=== PATIENT | female | born 1980 | race Caucasian/White ===

== ENCOUNTER 2020-02-29 07:34 | Emergency (ER) | payer OTHER, SELFPAY ==
[2020-02-29 07:42] VITALS: BP 125/72; PULSE 95; RESP 20; TEMP 36.2; O2SAT 97
--- NOTE | 2020-02-29 08:35 | ECG_ITS ---
Measurements Intervals [place] Rate: 72 P: 64 ME: 152 QRS: 60 QRSD: 76 T: 55 QT: 392 QTc: 431 Interpretive Statements SINUS RHYTHM NORMAL ECG Electronically Signed On 02-29-2020 10:05:27 [employer] by Leonides Casiano D.O.
[2020-02-29 08:51] LABS: Basophils Percent Auto 0.5 % (0.2-1.2); Eosinophils Absolute Auto 0.1 K/mm3 (0-0.3); Eosinophils Percent Auto 1.8 % (0-4.4); Hematocrit 42.9 % (37.0-47.0); Hemoglobin 14.8 g/dL (12.0-15.0); Immature Granulocyte Absolute 0.01 K/mm3 (0.00-0.031); Immature Granulocyte Percent A 0.2 % (0-0.5); Lymphocytes Percent Auto 34.7 % (18.3-44.2); Mean Corpuscular HGB Conc 34.5 g/dl (32-36); Mean Corpuscular Hemoglobin 33.1 pg (26-34); Mean Platelet Volume 8.9 fl (7.4-10.4); Monocytes Absolute Auto 0.5 K/mm3 (0.1-0.6); Monocytes Percent Auto 8.8 % (2.6-8.5); Platelet Count Result 301 k/mm3 (150-375); Red Blood Count 4.47 M/mm3 (4.2-5.4); Red Cell Distribution Width 12.4 % (11.5-14.5); White Blood Count 5.5 K/mm3 (4.5-10.0)
[2020-02-29 09:06] LABS: Alanine Aminotransferase 24 U/L (4-35); Albumin Level 4.1 g/dL (3.5-5.1); Alkaline Phosphatase 69 U/L (38-126); Anion Gap 6 mmol/L (8-16); Aspartate Amino Transferase 29 U/L (14-36); Bilirubin,Total 0.3 mg/dL (0.2-1.3); Blood Urea Nitrogen 9 mg/dL (7-17); Carbon Dioxide 29 mmol/L (22-30); Chloride 103 mmol/L (98-107); Estimated Glomerular Filt Rate > 60; Glucose 108 mg/dL (65-105); Magnesium 2.1 mg/dL (1.6-2.3); Potassium 4.6 mmol/L (3.4-5.0); Sodium 138 mmol/L (137-145)
[2020-02-29 09:12] VITALS: BP 121/84; PULSE 77
[2020-02-29 09:13] VITALS: BP 117/83; PULSE 74
[2020-02-29 09:14] VITALS: BP 119/80; PULSE 75
[2020-02-29 09:18] VITALS: BP 119/80; PULSE 81; RESP 17; O2SAT 97
--- NOTE | 2020-02-29 10:41 | ED.EYEPROB ---
HPI - Eye Problem General Chief complaint: Eye Problems Stated complaint: trouble seeing Time Seen by Provider: 02/29/20 08:25 Source: patient Mode of arrival: ambulatory Limitations: no limitations History of Present Illness HPI Narrative: This patient is a 40 year old female who presents for evaluation of blurred vision. She states she was at work standing around, and she states she developed lightheadness . She also reports she developed dark spots in her vision. She reports this has subsided now. She states this happened before 6 months ago after drinking a lot of alcohol the night before. She reports she drank last night as well. This lasted approximately for 1 hour. She denies palpitations or chest pain. She also denies focal weakness. Related Data Home Medications Medication Instructions Recorded Confirmed No Home Medications 02/29/20 02/29/20 Allergies Allergy/AdvReac Type Severity Reaction Status Date / Time No Known Allergies Allergy Verified 02/29/20 07:48 Review of Systems Review of Systems: All systems reviewed & are unremarkable except as noted in HPI and below Constitutional: Constitutional: Denies chills and Denies fever(s) Eyes: Eyes: Reports change in vision and Denies photophobia ENT: Denies nasal congestion Cardiovascular: Cardiovascular: Denies chest pain and Denies rapid heart rate Respiratory: Respiratory: Denies cough and Denies dyspnea PMFSH Past Medical History Medical History (Updated 02/29/20 @ 11:17 by Yoana Theodore MD) Patient denies medical problems Surgical History Surgical History (Updated 02/29/20 @ 10:53 by Yoana Theodore MD) H/O section Social History Social History (Updated 02/29/20 @ 10:53 by Yoana Theodore MD) Smoking packs per day: 0.5 Smoking cigarettes per day: 10.0 Smoking status: Current every day smoker Alcohol intake: current Substance use: never Gender identity (if verbalized by the patient): Female Exam Const: General: alert Orientation/consciousness: patient oriented x3 Eyes: Alignment and Position: alignment normal and position normal Periorbital: periorbital findings normal Eyelids: eyelids normal Conjunctivae: conjunctivae normal Pupils: Equal, round and reactive pupils present EOM: EOMs intact bilaterally Direct Ophthalmoscopy: normal light reflex and fundi normal bilaterally Neck: Neck: normal visual inspection and no lymphadenopathy Chest: Chest palpation & inspection: normal inspection of the chest Resp: Effort & Inspection: normal respiratory effort Auscultation: clear to auscultation bilaterally Cardio: Rate: regular rate Rhythm: regular rhythm Heart sounds: no murmurs GI: GI Palp: Yes Soft to palpation, No Tenderness to palpation present (GI) and No Guarding due to palpation present (GI) Auscultation: normal bowel sounds Neuro: General: patient oriented x3, moves all extremities, no meningeal signs, no focal motor deficits and CN's II-XI intact bilaterally Cranial nerves: Yes Nystagmus not present Speech: normal speech Gait exam (Neuro): Normal gait present Extrem: General: normal to inspection Psych: Mental Status: mental status grossly normal Affect: normal affect Course Reevaluation(s) Reevaluation #1: Patient reports her vision is back to normal. I Discussed with patient she will need to follow up PCP and an opthalmologist. I thinks something systemic happened and her eyes are ok. Date: 02/29/20 Time: 11:14 Vital Signs Vital signs: Vital Signs Temperature 97.2 F L 02/29/20 07:42 Pulse Rate 95 02/29/20 07:42 Respiratory Rate 20 02/29/20 07:42 Blood Pressure 125/72 02/29/20 07:42 Pulse Oximetry 97 02/29/20 07:42 Temperature 97.2 F L 02/29/20 07:42 Pulse Rate 71 02/29/20 11:22 Respiratory Rate 20 02/29/20 11:22 Blood Pressure 126/75 02/29/20 11:22 Pulse Oximetry 100 02/29/20 11:22 MDM - Eye Problem Lab Data Attest
[2020-02-29 11:22] VITALS: BP 126/75; PULSE 71; RESP 20; O2SAT 100
== END 2020-02-29 11:25 | disposition home or self-care (01) ==
PROVIDERS: Emergency Provider General Practice
DX: H53.8 Other visual disturbances (principal); R42 Dizziness and giddiness; F17.210 Nicotine dependence, cigarettes, uncomplicated
CPT/HCPCS: 36415; 80053; 81025; 83735; 85025; 93005; 99283; A9270

== ENCOUNTER 2020-04-16 09:21 | Outpatient (CLI) | payer OTHER, SELFPAY ==
[2020-04-16 10:10] LABS: Cholesterol 228 mg/dL (0-200); HDL Direct 42 mg/dL; Triglycerides 127 mg/dL (<150)
[2020-04-16 10:21] LABS: LDL Cholesterol Direct 172 mg/dL
[2020-04-16 10:38] LABS: Thyroid Stimulating Hormone 0.953 uIU/mL (0.465-4.680); Total Triiodothyronine (T3) 1.22 NG/ML (0.97-1.69)
[2020-04-16 10:51] LABS: Free T4 Free Thyroxine 1.02 ng/mL (0.78-2.19); Vitamin D 25 Hydroxy 45.6 ng/mL
== END 2020-04-16 09:22 | disposition home or self-care (01) ==
LOC: ANHLAB 09:23
PROVIDERS: Visit Provider Nurse Practitioner
DX: Z00.00 Encounter for general adult medical examination without abnormal findings (principal); Z13.220 Encounter for screening for lipoid disorders; Z13.29 Encounter for screening for other suspected endocrine disorder; E55.9 Vitamin D deficiency, unspecified
CPT/HCPCS: 36415; 80061; 82306; 84439; 84443; 84480

== ENCOUNTER 2021-03-15 08:20 | Emergency (ER) | payer OTHER, SELFPAY ==
--- NOTE | ~2021-03-15 | XR_ITS ---
EXAMINATION: XR ribs RT 2V w CXR 2V DATE: 03/15/2021 09:26 INDICATION: Cough and lateral sided right rib pain TECHNIQUE: PA and lateral views of the chest and 3 views of the right ribs were obtained. COMPARISON: None FINDINGS: No rib fractures identified. No pneumothorax. No focal infiltrates, pleural effusion or pulmonary yared ma. Cardiomediastinal silhouette is normal. IMPRESSION: 1. No rib fracture or acute cardiopulmonary disease. Reviewed, dictated and finalized at [facility]
[2021-03-15 08:22] VITALS: BP 137/79; PULSE 81; RESP 18; TEMP 36.8; O2SAT 100
[2021-03-15 08:49] VITALS: BP 116/84; PULSE 63; RESP 13; TEMP 36.6; O2SAT 99
[2021-03-15 09:05] VITALS: BP 116/84; PULSE 66; RESP 13; TEMP 36.6; O2SAT 99
[2021-03-15 09:06] VITALS: PULSE 63
--- NOTE | 2021-03-15 09:23 | ED.SOB ---
HPI - SOB/Dyspnea General Chief Complaint: Shortness of Breath/Dyspnea Stated Complaint: lung hurts Time Seen by Provider: 03/15/21 08:35 History of Present Illness HPI Narrative: Patient is a 41-year-old female who presents ER with right-sided chest wall pain. Began yesterday. Reports last week started having sinus congestion with sore throat and cough. She has been coughing for several days and while coughing her pain increased on the right side. No increased shortness of breath. No fevers or chills or sweats. Has history of pleurisy in the past. No alleviating factors. Pain is worse with coughing, breathing, and direct palpation. Related Data Allergies Allergy/AdvReac Type Severity Reaction Status Date / Time No Known Allergies Allergy Verified 02/29/20 07:48 Review of Systems Review of Systems: All systems reviewed & are unremarkable except as noted in HPI and below Constitutional: Constitutional: Denies chills, Denies fever(s) and Denies weakness ENT: Reports nasal congestion and Reports sore throat Cardiovascular: Cardiovascular: Reports chest pain, Denies rapid heart rate and Denies radiating jaw, neck or arm pain Respiratory: Respiratory: Denies chest congestion, Reports cough, Denies dyspnea and Denies wheezing Gastrointestinal: Gastrointestinal: Denies abdominal pain, Denies nausea and Denies vomiting PMFSH Past Medical History Medical History (Updated 03/15/21 @ 10:31 by Arsenio Kruse MD) Patient denies medical problems Surgical History Surgical History (Updated 02/29/20 @ 10:53 by Yoana Theodore MD) H/O section Social History Social History (Updated 02/29/20 @ 10:53 by Yoana Theodore MD) Smoking packs per day: 0.5 Smoking cigarettes per day: 10.0 Smoking status: Current every day smoker Alcohol intake: current Substance use: never Gender identity (if verbalized by the patient): Female Exam Narrative: GENERAL: Well-appearing, well-nourished, and in no acute distress. HEAD: Normocephalic, atraumatic. CHEST: Clear to auscultation. No respiratory distress. No palpation right anterior lateral chest wall lateral and superior to the breast. HEART: Regular rate and rhythm. Normal peripheral pulses.. EXTREMITIES: Normal range of motion. No edema. SKIN: Warm, dry, no rash. NEURO: Alert and oriented x3. PSYCH: Normal mood and affect. Course Course Emergency Course: Pain resolved with Toradol. No pain with deep breath or coughing. X-ray without evidence of pneumonia or rib fracture. Pleurisy versus chest wall strain. Discussed treatment is anti-inflammatories. Vital Signs Vital signs: Vital Signs Temperature 98.3 F 03/15/21 08:22 Pulse Rate 81 03/15/21 08:22 Respiratory Rate 18 03/15/21 08:22 Blood Pressure 137/79 03/15/21 08:22 Pulse Oximetry 100 03/15/21 08:22 Temperature 98 F 03/15/21 09:05 Pulse Rate 63 03/15/21 09:06 Respiratory Rate 13 03/15/21 09:05 Blood Pressure 116/84 03/15/21 09:05 Pulse Oximetry 99 03/15/21 09:05 MDM - SOB/Dyspnea Imaging Data Radiologist's impression: ITS Impressions Ribs w/Chest X-Ray 03/15/21 09:49 IMPRESSION: 1. No rib fracture or acute cardiopulmonary disease. Discharge Plan Discharge Clinical Impression: Chest wall pain Patient Disposition: Home, Self-Care Condition: Stable Instructions: Chest Wall Pain (ED) Additional Instructions: Return the ER if you have worsening chest pain, you cannot breathe, you cannot keep down food or water, you develop fever over 100.4 ?F, you have additional concerns. Prescriptions: New naproxen 375 mg tablet 375 mg PO BID Qty: 14 RF: 0 Follow-up/Referrals: Dylon Alberto MD [Physician] - 1 Week PHYSICIAN,HORSE RACING MANAGER [Primary Care Provider] -
[2021-03-15] MEDS: KETOROLAC (*BKC) 60 MG/2 ML VIAL IM (09:49)
[2021-03-15 10:57] VITALS: BP 121/84; PULSE 70; RESP 18; O2SAT 99
== END 2021-03-15 10:58 | disposition home or self-care (01) ==
PROVIDERS: Emergency Provider Emergency Medicine
DX: R07.89 Other chest pain (principal); F17.210 Nicotine dependence, cigarettes, uncomplicated
CPT/HCPCS: 71046; 71100; 96372; 99283; J1885

== ENCOUNTER 2022-02-08 06:47 | Emergency (ER) | payer OTHER, SELFPAY ==
--- NOTE | ~2022-02-08 | CT_ITS ---
EXAMINATION: CT abdomen pelvis w con DATE: 02/08/2022 09:02 INDICATION: Lower abdominal pain TECHNIQUE: Computed tomography (CT) of the abdomen and pelvis was performed with 100 CC Omnipaque 350 intravenous contrast. Automated exposure control and iterative reconstruction technique were employe d. Exam dose: 304.19 mGy-cm total exam DLP. COMPARISON: None. FINDINGS: The lung bases are clear. Normal heart size. No pericardial or pleural effusion. The gallbladder is contracted. No pericholecystic fluid or fat stranding. No bile duct dilatation. No hepatic, splenic, pancreatic, adrenal space-occupying mass lesion. There are several up to 1 cm lowe r pole right renal cysts. The kidneys are otherwise unremarkable. No urinary tract calculus or hydrou reteronephrosis. There is moderate thickening of the urinary bladder wall. Cystitis is not excluded. There is an IUD w ithin the retroflexed uterus. There is mild free fluid in the right adnexal area and right posterior cul-de-sac. There is atherosclerotic change of the abdominal aorta but no aneurysm. No intraperitoneal or retrope ritoneal or pelvic mass lesion or adenopathy or ascites is noted. There is a small sliding hiatal hernia. No bowel obstruction, bowel wall thickening, pneumatosis or i ntraperitoneal free air is detected. Small fat-containing umbilical hernia. There is a supraumbilical fat-containing ventral abdominal wal l hernia. No suspicious osteolytic or osteoblastic lesions. IMPRESSION: Right renal cysts Moderate thickening and urinary bladder wall; cystitis is not excluded Retroflexed uterus with IUD Mild free fluid in the right adnexal area and posterior right cul-de-sac, which may be physiologic Small sliding hiatal hernia Reviewed, dictated and finalized at [facility]. Reviewed, dictated and finalized at [facility].
[2022-02-08 06:56] VITALS: BP 100/68; PULSE 123; RESP 20; TEMP 37; O2SAT 96
--- NOTE | 2022-02-08 07:29 | ECG_ITS ---
Measurements Intervals [place] Rate: 94 P: 61 MA: 140 QRS: 64 QRSD: 78 T: 55 QT: 353 QTc: 441 Interpretive Statements SINUS RHYTHM POSSIBLE LEFT ATRIAL ENLARGEMENT BORDERLINE ECG COMPARED TO ECG 02/29/2020 09:07:18 NO SIGNIFICANT CHANGES Electronically Signed On 02-08-2022 11:43:21 CDT by Leonides Casiano D.O.
--- NOTE | 2022-02-08 07:31 | ED.GENADULT ---
HPI - General Adult General Chief complaint: Headache Stated complaint: headache, fever Time Seen by Provider: 02/08/22 07:12 History of Present Illness HPI narrative: 42-year-old female presented to the emergency department for evaluation of multiple complaints. Patient states yesterday she began having some lower abdominal pain. Patient attributed this to her IUD. Patient also does describe cough congestion fever and headache. Patient states this morning she was running a fever of 106.7. Upon arrival to the emergency department patient is temperature was 98.6 patient states that she has been having some headache. She reports her abdominal pain is improved compared to yesterday. Patient does have an IUD in place but has had no prior issues with her IUD. Patient did attempt to get follow-up with [facility] but will not have follow-up until May. Related Data Allergies Allergy/AdvReac Type Severity Reaction Status Date / Time No Known Allergies Allergy Verified 02/29/20 07:48 Review of Systems Review of Systems: CONSTITUTIONAL: Denies fever, chills, or sweats. EYES: Denies visual changes, redness, or discharge. ENT: Denies rhinorrhea, congestion, sore throat, or otalgia. CARDIOVASCULAR: Denies chest pain, palpitations, or edema. RESPIRATORY: Denies cough or dyspnea. GASTROINTESTINAL: Lower abdominal pain GENITOURINARY: Denies dysuria or hematuria. SKIN: Denies rash or itching. MUSCULOSKELETAL: Denies back pain, joint pain, or myalgia. NEUROLOGIC: Headache PMFSH Past Medical History Medical History (Updated 02/08/22 @ 09:27 by Martin Hopkins MD) Patient denies medical problems Surgical History Surgical History (Updated 02/29/20 @ 10:53 by Yoana Theodore MD) H/O section Social History Social History (Updated 02/29/20 @ 10:53 by Yoana Theodore MD) Smoking packs per day: 0.5 Smoking cigarettes per day: 10.0 Smoking status: Current every day smoker Alcohol intake: current Substance use: never Gender identity (if verbalized by the patient): Female Exam Narrative: APPEARANCE: Well appearing, no pain, no distress, well-nourished. HEAD: normocephalic, atraumatic. EYES: PERRLA/EOMI, conjunctivae clear. NOSE: Normal no drainage EARS:TMS clear with good light reflex. THROAT: Pharynx clear, no exudate. NECK: Supple. No adenopathy, no masses. RESPIRATORY: Airway patent, respirations nonlabored. Clear to auscultation bilaterally, no rales, rhonchi, wheezing. CARDIOVASCULAR: Regular rate and rhythm without murmurs rubs or gallops. ABDOMINAL: Soft, nontender, nondistended, normal bowel sounds MUSCULOSKELETAL: Moves all extremities. Strength/ROM intact, No edema, No calf tenderness. NEURO: Alert. Cranial nerves II through XII intact. Grossly intact SKIN: Warm, dry. Normal Color Course Course Emergency Course: Patient did test positive for COVID. Patient was updated on the results of her work-up. CT scan showed right renal cyst and thickening of the urinary bladder. Cystitis was not excluded, IUD and retroflexed uterus. UA showed no evidence of urinary tract infection. Vital Signs Vital signs: Vital Signs Temperature 98.6 F 02/08/22 06:56 Pulse Rate 123 H 02/08/22 06:56 Respiratory Rate 20 02/08/22 06:56 Blood Pressure 100/68 02/08/22 06:56 Pulse Oximetry 96 02/08/22 06:56 Oxygen Delivery Room Air 02/08/22 06:56 Temperature 98.6 F 02/08/22 06:56 Pulse Rate 123 H 02/08/22 06:56 Respiratory Rate 20 02/08/22 06:56 Blood Pressure 100/68 02/08/22 06:56 Pulse Oximetry 96 02/08/22 06:56 Oxygen Delivery Room Air 02/08/22 06:56 Medical Decision Making Vital Signs Vital Signs: Vital Signs Temperature 98.6 F 02/08/22 06:56 Pulse Rate 123 H 02/08/22 06:56 Respiratory Rate 20 02/08/22 06:56 Blood Pressure 100/68 02/08/22 06:56 Pulse Oximetry 96 02/08/22 06:56 Oxygen Delivery Room Air 02/08/22 06:56 Temperature 98.
[2022-02-08] MEDS: diphenhydrAMINE HCl INJ 50 MG/ML VIAL 25 MG IV PUSH (08:03)
[2022-02-08] MEDS: PROCHLORPERAZINE EDISYLATE 10 MG/2 ML VIAL IV PUSH (08:04)
[2022-02-08] MEDS: SODIUM CHLORIDE 0.9% IV 1,000 ML 999 ML IV CONT (08:04)
[2022-02-08 08:05] LABS: Appearance Urine Clear (Clear); Bilirubin Urine 1+ (Negative); Blood Urine Trace-intact (Negative); Color Urine Yellow (Yellow); Glucose Urine UA Negative (Negative); Ketones Urine Trace mg/dL (Negative); Leukocyte Esterase Ur Negative LEU/UL (Negative); Nitrate Urine Negative (Negative); Protein Urine 2+ mg/dL (Negative); Specific Grav Ur >= 1.030 (1.001-1.035)
[2022-02-08 08:10] LABS: Lactic Acid Reflex 0.9 mmol/L (0.7-2.0)
[2022-02-08 08:11] LABS: Alanine Aminotransferase 23 U/L (6-35); Albumin Level 3.8 g/dL (3.5-5.1); Alkaline Phosphatase 49 U/L (38-126); Anion Gap 9 mmol/L (8-16); Aspartate Amino Transferase 30 U/L (14-36); Bilirubin,Total 0.3 mg/dL (0.2-1.3); Blood Urea Nitrogen 9 mg/dL (7-17); Carbon Dioxide 24 mmol/L (22-30); Chloride 99 mmol/L (98-107); Estimated CRCL calculation 71 ml/min; Estimated Glomerular Filt Rate > 60; Glucose 136 mg/dL (65-110); Potassium 3.5 mmol/L (3.4-5.0); Sodium 132 mmol/L (137-145)
[2022-02-08 08:12] LABS: Basophils Percent Auto 0.3 % (0.2-1.2); Eosinophils Percent Auto 0.3 % (0-4.4); Hematocrit 37.1 % (37.0-47.0); Hemoglobin 12.6 g/dL (12.0-15.0); Immature Granulocyte Absolute 0.02 K/mm3 (0.00-0.031); Immature Granulocyte Percent A 0.5 % (0-0.5); Lymphocytes Absolute Auto 0.46 K/mm3 (0.9-3.2); Lymphocytes Percent Auto 11.8 % (18.3-44.2); Mean Corpuscular Hemoglobin 32.2 pg (26-34); Mean Corpuscular Volume 94.9 fl (80-100); Mean Platelet Volume 9.2 fl (7.4-10.4); Monocytes Absolute Auto 0.8 K/mm3 (0.1-0.6); Monocytes Percent Auto 19.4 % (2.6-8.5); Neutrophils Absolute Auto 2.7 K/mm3 (1.3-6.7); Neutrophils Percent Auto 67.7 % (45.5-73.1); Platelet Count Result 187 k/mm3 (150-375); Red Blood Count 3.91 M/mm3 (4.2-5.4); Red Cell Distribution Width 12.2 % (11.5-14.5); White Blood Count 3.9 K/mm3 (4.5-10.0)
[2022-02-08 08:14] LABS: Bacteria Urine Trace /hpf; Mucus Urine Rare /lpf; Squamous Epithelial Cell Urine Many /hpf (Few)
[2022-02-08 08:17] LABS: Add Urine Microscopic? YES
[2022-02-08 08:38] LABS: Influenza A QL RT-PCR Negative (Negative); Influenza B QL RT-PCR Negative (Negative); SARS-CoV-2 RNA PCR Positive
== END 2022-02-08 10:39 | disposition home or self-care (01) ==
PROVIDERS: Emergency Provider Emergency Medicine
DX: U07.1 COVID-19 (principal); Z97.5 Presence of (intrauterine) contraceptive device; F17.210 Nicotine dependence, cigarettes, uncomplicated; N28.1 Cyst of kidney, acquired; K44.9 Diaphragmatic hernia without obstruction or gangrene; R94.31 Abnormal electrocardiogram [ECG] [EKG]; R93.41 Abnormal radiologic findings on diagnostic imaging of renal pelvis, ureter, or bladder
CPT/HCPCS: 36415; 74177; 80053; 81001; 83605; 85025; 87502; 93005; 96374; 96375; 99284; J0780; J1200; J7030; Q9967; U0003; U0005